=== PATIENT | male | born 1970 | race Caucasian/White ===

== ENCOUNTER → 2019-05-17 | Outpatient (CLI) | payer OTHER ==
[~2019-05-17] MED LIST: IBUPROFEN 400400 M2 PO; IBUPROFEN 800800 MG PO; NORCO 5-325 TA1 EACH PO
== END ==
LOC: M.ULTRA 12:52 → M.CT 13:00
DX: N28.1 Cyst of kidney, acquired (principal)

== ENCOUNTER 2019-12-04 23:07 | Observation (INO) | payer OTHER ==
[~2019-12-04] VITALS: Ht 172.7 cm; Wt 83.5 kg
[2019-12-04 23:07] VITALS: BP 187/116
[2019-12-04 23:41] LABS: ABSOLUTE EOSINOPHILS 0.4 thou/uL (0.0-0.7); ABSOLUTE LYMPHOCYTES 1.8 thou/uL (0.8-5.3); ABSOLUTE MONOCYTES 1.2 thou/uL (0.0-1.2); ABSOLUTE NEUTROPHILS 4.3 thou/uL (1.6-8.1); BASOPHILS 0.4 %; EOSINOPHILS 5.4 %; HEMATOCRIT 42.8 % (42.0-52.0); HEMOGLOBIN 14.8 gm/dL (14.0-18.0); LYMPHOCYTES 23.5 %; MCH 29.6 pg (26.0-34.0); MCHC 34.5 g/dL (28.0-37.0); MCV 85.8 fL (80.0-100.0); MONOCYTES 15.6 %; MPV 8.1 fl. (7.2-11.1); NUCLEATED RBCS 0 /100WBC; PLATELET COUNT* 300 thou/uL (150-400); POLYS 55.1 %; RBC 4.99 mil/uL (4.50-6.00); RDW-CV 12.8 % (10.5-14.5); WBC 7.9 thou/uL (4.0-11.0)
[2019-12-04 23:51] LABS: CREATININE 1.2 mg/dL (0.6-1.3); POTASSIUM 3.6 mmol/L (3.5-5.1)
[2019-12-05] LABS: ALBUMIN 3.8 g/dL (3.4-5.0); MAGNESIUM 2.3 mg/dL (1.8-2.4); TOTAL BILIRUBIN 0.3 mg/dL (<0.1-1.0); TOTAL PROTEIN 7.1 g/dL (6.4-8.2)
[2019-12-05 00:05] LABS: INR 1.1; PROTIME 10.9 Seconds (9.20-11.50)
[2019-12-05 04:05] VITALS: BP 140/92
[2019-12-05 07:50] VITALS: BP 140/96
[2019-12-05] MEDS ORDERED: ASA81BEC PO (08:49)
[2019-12-05] MEDS ORDERED: HYDROCHLOROTH12.5 M1 PO (08:49)
[2019-12-05] MEDS ORDERED: PREDNISONE 20 M20 MG PO (08:58)
[2019-12-05 09:33] LABS: CHOLESTEROL 214 mg/dL (<200); HDL CHOLESTEROL 47 mg/dL (>40); LDL CHOLESTEROL 139 mg/dL (<100); TC:HDL 4.6 Ratio (Not establshd); TRIGLYCERIDE 143 mg/dL (<150); VLDL 29 mg/dL (<40)
[2019-12-05 09:35] LABS: SERUM ASSESSMENT Clear
--- NOTE | 2019-12-05 13:00 | EKG ---
[place] [address] ELECTROCARDIOGRAM REPORT Name: NOHEMICJYANELIS DOMINICK Room: [address] M.R.#: [id number] Admission: 12/05/19 Attend Phys: Kee Doll, Discharge: Date of : 66 Date of Service: 12/04/19 2311 Report #: [id number] THIS REPORT FOR: //name// [facility] ED Test Date: 2019-12-04 Test Time: 23:11:06 Pat Name: YANELIS LAWLER Department: Room: [facility] Gender: M Chief Engineer: JAK : 1970 Requested By: Ezekiel Godwin Order Number: [id number] MD: Yogesh Goyal Measurements Intervals [place] Rate: 110 P: 60 NH: 174 QRS: 6 QRSD: 88 T: 42 QT: 341 QTc: 462 Interpretive Statements Sinus tachycardia Minimal ST depression, anterolateral leads No previous ECG available for comparison Electronically Signed On 12-05-2019 13:00:10 CDT by Yogesh Goyal [email or web address] <ELECTRONICALLY SIGNED> By: Yogesh Goyal MD, FACC 12/05/19 1300 [address] [facility] Yogesh Goyal MD, [facility] /EPI
--- NOTE | 2019-12-05 13:45 | CARDNUC ---
[place] [address] CARDIAC NUCLEAR IMAGING REPORT Name: YANELIS LAWLER Room: [address] M.R.#: [id number] Admission: 12/05/19 Attend Phys: Kee Doll, Discharge: Date of : 66 Date of Service: 12/05/19 1345 Report #: [id number] THIS REPORT FOR: cc: Mark Lopez MD, David L. MD Liston, Michael J. MD [facility] ~ APPROVED REPORT Imaging Protocol: Rest Tc-99m/Stress Tc-99m 1 day Study performed: 12/05/2019 08:17:00 Indication: Chest pain Patient Location: In-Patient Room #: er Stress Tech: Chioma Zamora Stress Nurse: Aisha Bryant RN NM Tech:ALYX Michaels Ht: 5 ft 8 in Wt: 184 lbs BSA: 1.97 m2 BMI: 27.97 Medical History Medical History: HTN Medications: no cardiac meds Allergies: cephalosporins Cardiac Risk Factors: Age, HTN Exercise History: Physically active Resting Data Rest SPECT myocardial perfusion imaging was performed in supine position 30 minutes following the intravenous injection of 11.2 mCi of Tc-99m Sestamibi. Time of rest injection: 949 Date: 12/05/2019 The images were gated to evaluate regional wall motion and calculate left ventricular ejection fraction. Administration Route: IV Exercise Stress At peak stress, the patient was injected intravenously with 29.1mCi of Tc-99m Sestamibi. Time of stress injection: 1205 Date: 12/05/2019 Administration Route: IV Gated Stress SPECT was performed 30 minutes [place] [address] CARDIAC NUCLEAR IMAGING REPORT Name: YANELIS LAWLER Room: [address] M.R.#: [id number] Admission: 12/05/19 Attend Phys: Kee Doll, Discharge: Date of : 66 Date of Service: 12/05/19 1345 Report #: [id number] The images were gated to evaluate regional wall motion and calculate left ventricular ejection fraction. Prone imaging was performed. Stress Test Details Stress Test: Exercise stress testing was performed using a Ilia protocol. HR Max Heart Rate (APMHR): 169 bpm Resting HR: 110 bpm Target HR (85% APMHR): 143 bpm Max HR Achieved: 162 bpm % of APMHR: 95 Recovery HR: 125 bpm HR response to stress: Accelerated HR response to stress BP Resting BP: 159/89 mmHg Max BP: 236/106 mmHg Recovery BP: 179/108 mmHg BP response to stress: Abnormal hypertensive response to stress. ECG Resting ECG: Sinus Tachycardia Stress ECG: Sinus Tachycardia ST Change: None Arrhythmia: None Recovery ECG: Sinus Tachycardia Recovery ST Change: None Recovery Arrhythmia: None Clinical Reason for Termination: hypertension Exercise duration: 5 min 59 sec Exercise capacity: 7.05 METs Functional Aerobic Impairment 95% The patient had no specific cardiac symptoms with standard risk protocol exercise. He did have an exaggerated heart rate response and hypertension with activity. Nurse Comments pt stopped due to concern about high blood pressure Stress ECG Conclusion The baseline twelve-lead EKG shows sinus tachycardia without significant ST segment or T wave abnormality. EKGs obtained during and post exercise shows sinus tachycardia with [place] [address] CARDIAC NUCLEAR IMAGING REPORT Name: YANELIS LAWLER Room: [address] M.R.#: [id number] Admission: 12/05/19 Attend Phys: Kee Doll, Discharge: Date of : 66 Date of Service: 12/05/19 1345 Report #: [id number] segment changes when compared to baseline. There were no stress-induced arrhythmias. Study Quality Study: Good Artifact: No artifact Study Data At rest, the left ventricular ejection fraction was 69%.. Post stress, the left ventricular ejection was 72%.. TID = 0.79. Perfusion Perfusion images obtained at rest and post exercise stress showed uniform uptake of the radioisotope throughout the myocardium. There were no defects to suggest infarct or ischemia. Wall Motion Gated study showed normal left ventricular systolic function with no evidence of wall motion abnormality. Nuclear Conclusion ECG Findings: negative for ischemia Clinical Findings: negative for ischemia Nuclear Findings: negative for ischemia Exercise Capacity: normal Left Ventricular Function: normal Risk Study: low Perfusion study show no defect to suggest infarct or ischemia. Left ventricular systolic function appears normal on gated studies. This is a low risk study. <Conclusion> The baseline twelve-lead EKG shows sinus tachycardia without significant ST segment or T wave abnormality. EKGs obtained during and post exercise shows sinus tachycardia with no significant ST segment changes when compared to baseline. There were no stress-induced arrhythmias. <ELECTRONICALLY SIGNED> By: Yogesh Goyal MD, FACC 12/05/19 1345 1345 1345 Yogesh Goyal MD, FACC /INF
[2019-12-05 13:58] VITALS: BP 140/96
[2019-12-05 17:20] VITALS: BP 140/96
== END 2019-12-06 00:26 | disposition left against medical advice (07) ==
LOC: M.ERS 23:07 → M.TBA-ER 12-05 00:26
PROVIDERS: Emergency Medicine Emergency Medical Services; Internal Medicine; ADMIT Internal Medicine; ATTEND Internal Medicine
DX: I25.110 Atherosclerotic heart disease of native coronary artery with unstable angina pectoris (principal); J45.909 Unspecified asthma, uncomplicated; I10 Essential (primary) hypertension; R61 Generalized hyperhidrosis; R06.02 Shortness of breath

== ENCOUNTER → 2020-01-21 | Outpatient (CLI) | payer OTHER ==
[~2020-01-21] MED LIST changes: +ASA81BEC PO; +HYDROCHLOROTH12.5 M1 PO; +PREDNISONE 20 M20 MG PO
--- NOTE | 2020-01-28 08:01 | PF ---
[place] [address] PULMONARY FUNCTION REPORT Name: YANELIS LAWLER ALAN Room: [facility]#: [id number] Admission: 01/21/20 Attend Phys: Mark Lopez MD Discharge: Date of : 66 Report #: [id number] THIS REPORT FOR: //name// CC: Mark Lopez DATE OF SERVICE: 01/21/2020 The FEV1/FVC ratio is normal at 78% with an FVC normal at 112%. The FEV1 is also normal at 112%. The XMW78-18 is normal at 126%. After the administration of a bronchodilator, there is no significant change in any of these values. The patient's post-bronchodilator FEV1 is noted to be 3.96 liters. The total lung capacity is normal at 95% with a residual volume decreased to 54%. The DLCO as adjusted for hemoglobin is normal at 91%. IMPRESSION: These are essentially normal pulmonary function tests with the exception that residual volume is decreased to 54%. This could be a normal variant or could indicate mild restriction. Clinical correlation is advised. <ELECTRONICALLY SIGNED> By: Raymond Cantu MD 01/28/20 0801 1857 1922Azackary Cantu MD /nt
== END ==
LOC: M.CT 01-07 09:35
PROVIDERS: ATTEND Internal Medicine
DX: R07.9 Chest pain, unspecified (principal); R06.02 Shortness of breath; R19.00 Intra-abdominal and pelvic swelling, mass and lump, unspecified site; F32.89 Other specified depressive episodes; K76.0 Fatty (change of) liver, not elsewhere classified; N28.1 Cyst of kidney, acquired